=== PATIENT | male | born 1960 | race Caucasian/White ===

== ENCOUNTER 2016-10-02 10:27 | Emergency (ER) | payer OTHER ==
[~2016-10-02] VITALS: Ht 182.9 cm; Wt 99.7 kg
[2016-10-02 11:53] LABS: HEMATOCRIT 50.3 % (38.0-50.0); MCH 31.7 PG (29.0-34.0); MCHC 34.4 G/DL (30.0-36.0); MCV 92.3 FL (86-99); MEAN PLAT.VOLUME 9.2 uM^3 (9.0-12.4); PLATELET COUNT 231 K/uL (156-360); RBC DIS.WIDTH-CV 13.3 % (11.8-14.6); RBC DIS.WIDTH-SD 45.2 % (39-53); RED BLOOD COUNT 5.45 M/uL (4.00-5.50); WHITE BLOOD COUNT 11.2 K/uL (4.1-10.2)
[2016-10-02 12:23] LABS: ANION GAP 7 MEQ/L (2-14); CHLORIDE 104 MEQ/L (99-109); POTASSIUM 3.9 MEQ/L (3.7-5.4); SAMPLE HEMOLYSIS CHECK 0; SAMPLE ICTERIC CHECK 0; SAMPLE LIPEMIA CHECK 0; SODIUM 140 MEQ/L (136-147)
[2016-10-02 12:29] LABS: GLUCOSE 113 mg/dL (70-99); UREA NITROGEN (BUN) 14 mg/dL (9-23)
[2016-10-02 12:35] LABS: GFR ESTIMATE (CALCULATED) > 59 mL/min/
[2016-10-02 17:16] VITALS: BP 108/69
== END 2016-10-02 17:17 | disposition home or self-care (01) ==
LOC: RME 10:27 → EME 10:27 → RME 17:17
DX: K62.5 Hemorrhage of anus and rectum (principal)
CPT/HCPCS: 74177; 80048; 85027; 86850; 86900; 86901; 99281; 99284; J7040